=== PATIENT | female | born 1990 | race Two or more races ===

== ENCOUNTER → 2017-03-19 | Outpatient (CLI) | payer OTHER | LOC: BMCIMAGING 12:49 | PROVIDERS: ATTEND Registered Nurse General Practice | DX: N94.6 Dysmenorrhea, unspecified (principal) ==

== ENCOUNTER → 2018-07-11 | Outpatient (CLI) | payer OTHER | LOC: FIMAGING 07:40 | PROVIDERS: ATTEND Obstetrics & Gynecology | DX: Z36.2 Encounter for other antenatal screening follow-up (principal); O36.62X0 Maternal care for excessive fetal growth, second trimester, not applicable or unspecified; O99.512 Diseases of the respiratory system complicating pregnancy, second trimester; J45.990 Exercise induced bronchospasm; Z3A.20 20 weeks gestation of pregnancy; Z68.31 Body mass index [BMI] 31.0-31.9, adult ==

== ENCOUNTER → 2018-08-09 | Outpatient (CLI) | payer OTHER | LOC: FIMAGING 14:43 | PROVIDERS: ATTEND Obstetrics & Gynecology | DX: O36.62X0 Maternal care for excessive fetal growth, second trimester, not applicable or unspecified (principal); Z3A.24 24 weeks gestation of pregnancy ==

== ENCOUNTER → 2018-10-10 | Outpatient (CLI) | payer OTHER | LOC: FIMAGING 13:58 | PROVIDERS: ATTEND Obstetrics & Gynecology | DX: Z34.83 Encounter for supervision of other normal pregnancy, third trimester (principal); Z3A.33 33 weeks gestation of pregnancy ==

== ENCOUNTER 2019-01-21 00:11 | Emergency (ER) | payer OTHER ==
[2019-01-21] MEDS ORDERED: fentaNYL 100 MCG/2 ML INJ ONE (00:31)
[2019-01-21] MEDS ORDERED: fentaNYL 100 MCG/2 ML INJ IVP ONE ×2 (00:32→02:00)
--- NOTE | 2019-01-21 00:50 | EDPHY ---
General - History Smoking Status: Never smoked Time Seen by Provider: 01/21/19 00:31 Narrative: CLINICAL IMPRESSION: Right proximal tibia fracture ASSESSMENT/PLAN: Patient is a 28-year-old female with no significant medical history presents to the emergency department with acute right knee pain and inability to bear weight after sustaining an injury while playing soccer. Patient is very uncomfortable appearing on arrival with obvious swelling inferior lateral right knee, no obvious deformity. X-ray revealed lateral proximal tibial fracture with displacement, also concern for soft tissue and possible ligamentous injury based on mechanism. There was no evidence on physical exam of dislocation, patellar rupture, compartment syndrome, open fracture or neurovascular compromise. Dr. Rock with Orthopedic surgery was consulted, he reviewed the patient's x-rays and recommended CT for further evaluation and surgical planning ; still pending. Patient was given multiple doses of narcotic pain medication. She was placed in a posterior long fiberglass splint as a knee immobilizer would not fit. On repeat examination after splint placement, CMS remained intact however the patient was experiencing significant pain. Discussed admission for pain control and patient opts to wait and attempt to go home. Dispo is pending at this time, entirety of this case was discussed with Dr. Merino who will resume care of this patient at this time. Pending discharged home, she understands the importance of nonweightbearing status and will call 1st thing Wednesday morning to schedule follow-up appointment with Orthopedic surgery. Conservative return precautions were discussed with this patient, she will return for severe or uncontrolled pain, significant swelling, illness or coolness of the extremity, fever, numbness or tingling of the extremity or for any other concerning symptom. DIFFERENTIAL DX: Knee injury while playing soccer including but not limited to fracture, ACL injury, contusion, muscular strain, and meniscus injury. ED PROCEDURES: Procedure: Splint placement. A posterior long leg was applied. After application of the splint I returned and re-examined the patient. The splint was adequately immobilizing the joint and distal to the splint the patient's circulation and sensation was intact. ED COURSE: 0038: Case discussed with Dr. Merino 0049: X-ray reviewed by myself and Dr. Merino, reveals proximal lateral tibial fracture. 0102: On repeat examination the patient is much more comfortable appearing. Secondary assessment reveals no additional injuries. Her lower leg compartments remained soft and she remains neurovascularly intact distally. 0225: On repeat examination the patient is very tearful, very uncomfortable appearing. Posterior splint has been applied, CMS remains intact post splint placement. Compartments have remained soft. Discussed admission for pain control, patient would prefer to go home. Will wait for adequate pain control and re-evaluate. Dr. Merino will resume care of this patient at this time. CHIEF COMPLAINT: Right knee pain HPI: Patient is a 28-year-old female with no significant medical history who presents to the emergency department with acute right knee pain after sustaining an injury while playing soccer. Just prior to arrival patient reports she was jumping up to get a ball, when she landed she felt her knee bend medially and felt a pop at that time. She was able to stand for brief period of time however felt that her knee gave out medially. She has been experiencing increased pain and swelling inferior to the right knee. She is experiencing most pain on the lateral aspect. She denies any numbness or tingling of the extremity. She denies any previous injury or surgery to this knee. She did not hit her head, there was no loss of consciousness. She denies any other injury or complaint. PAST MEDICAL HISTORY: Denies Pertinent Past Surgical History: Denies Family History: Noncontributory Social History: Denies cigarette smoking, illicit drug use or alcohol abuse ROS: A full 10 point review of systems was negative except for those mentioned in HPI. PHYSICAL EXAM: General Appearance: Alert, very uncomfortable appearing however not toxic- appearing. HENT: Normocephalic, atraumatic. External ears are normal. Nares are clear, mucosa is pink. Oropharynx is clear, normal dentition. Eyes: PERRLA, EOMI intact. Conjunctiva pink, no pallor or injection. Neck: Supple, nontender, no lymphadenopathy, no midline pain, FROM. Respiratory: There are no retractions, lungs are clear to auscultation. Cardiac: Regular rate and rhythm, no murmurs or gallops. Gastrointestinal: Abdomen is soft, nontender, bowel sounds normal, no masses/ hernia, no rigidity, guarding or focal peritoneal findings. Skin: Warm, dry, no rashes, no nodules on palpation. Upper Extremities: Bilateral upper extremities unremarkable. Intact distal pulses, Full range of motion intact, no tenderness, no ecchymosis or edema. Lower Extremities: Left lower extremity is unremarkable. Intact distal pulses , No edema, No tenderness, No cyanosis, full range of motion intact. Right lower extremity with obvious edema noted to the general right knee, there is more notable swelling inferior lateral to the right knee along the proximal fibula. There is no obvious deformity. Both her right thigh and right calf compartments are soft. Dorsalis pedis and posterior tibialis is 2+. There is no calf tenderness. Right ankle is nontender with full range of motion. MEDICAL DECISION MAKING: Patient was seen independently. Secondary supervising physician at time of evaluation was Dr. Merino, she also evaluated this patient. Diagnosis: Proximal, lateral tibial fracture. New, requires workup Summary: See Assessment and Plan for summary of ED visit Clinical lab tests: Not applicable. Independent visualization of images, tracing, or specimens: Yes. Decision to obtain medical records or history from someone other than the patient: No Review / Summarize previous medical records: Yes Discussed patient with another provider: Yes, Dr. Merino Patient Progress: Stable, pending. (Essence Rose) PHYSICIAN DOCUMENTATION: The patient was evaluated and managed by the Physician Home Health Care Coordinator. My co- signature indicates that I have reviewed this chart and I agree with the findings and plan of care as documented. I am the secondary supervising physician. This is a 28-year-old female who had an injury while playing soccer and sustained a proximal tibial fracture laterally. As I examined the patient, she does not have any signs or symptoms of compartment syndrome. I consulted with Dr. Rock of Orthopedics. He recommends CT scan and if patient's pain is well managed, can be discharged home. We applied a splint, obtained CT scan and monitored patient in the emergency department for several hours. CT scan revealed a comminuted fracture of the lateral tibial plateau with a 5 mm step off, comminuted fibular head fracture and associated tissue swelling. Patient eventually felt well enough to go home, was able to use crutches. Will be discharged with orthopedic follow-up. (Fide Merino) - Objective Vital Signs: Initial Vital Signs Temperature (C) 37.7 C 01/21/19 00:19 Heart Rate 107 H 01/21/19 00:19 Respiratory Rate 22 H 01/21/19 00:19 Blood Pressure 132/87 H 01/21/19 00:19 O2 Sat (%) 100 01/21/19 00:19 O2 Delivery Mode Room Air Allergies/Adverse Reactions: tramadol Allergy (Verified 01/21/19 00:21) Home Medications: Medication Instructions Recorded Ibuprofen [Motrin (*)] 600 mg PO Q6 PRN #60 tab 03/06/15 Hydrocodone/APAP 5/325 [[place] 1 - 2 tab PO Q6H PRN #20 tab 01/21/19 5/325 (*)] Medications Given: Discontinued Medications Hydrocodone Bitart/Acetaminophen ([place] 5/325) 1 tab PO EDNOW ONE Stop: 01/21/19 00:55 Last Admin: 01/21/19 01:01 Dose: 1 tab Hydrocodone Bitart/Acetaminophen ([place] 5/325mg Prepack#6) 1 btl TAKEHOME EDNOW ONE Stop: 01/21/19 02:56 Last Admin: 01/21/19 03:15 Dose: 1 btl Fentanyl (Sublimaze) 100 mcg IVP ONCE ONE Stop: 01/21/19 00:33 Last Admin: 01/21/19 00:44 Dose: 100 mcg Fentanyl (Sublimaze) 100 mcg IVP EDNOW ONE Stop: 01/21/19 02:01 Last Admin: 01/21/19 02:00 Dose: 100 mcg Departure - Departure Disposition: Home, Routine, Self-Care Clinical Impression: Closed tibia fracture Qualifiers: Encounter type: initial encounter Tibia location: proximal Fracture morphology : unspecified fracture morphology Laterality: right Qualified Code(s): S82.101A - Unspecified fracture of upper end of right tibia, initial encounter for closed fracture Condition: Good Instructions: Hydrocodone/Acetaminophen (By mouth), Leg Fracture (ED) Additional Instructions: DISCHARGE INSTRUCTIONS FROM YOUR DOCTOR Thank you for visiting our emergency department today. Please keep in mind that discharge from the emergency department does not mean that there is nothing wrong - it simply means that we have not identified an emergency condition that requires further evaluation or treatment in the hospital. You should always plan to follow up with primary care for re-evaluation of your condition in the next 2-3 days. Ice on and off to the affected knee. Elevate as much as possible. Wear your splint as applied, do not get it wet. No weight-bearing until follow- up with Orthopedic surgery. Tylenol as directed as needed for less severe pain. Do not exceed 4000 mg in 24 hours. You have been prescribed [place] which is a narcotic. Please do not drive or operate machinery while taking this medication as it may make you drowsy. It may also be habit forming. This medication can also cause constipation, recommend taking 100 mg of Colace twice daily while taking this medication. This medication also contains Tylenol, please do not take other Tylenol containing products with this medication. Call and schedule a follow-up re-evaluation appointment with your primary care physician in the next 3-7 days. As discussed, you may require further evaluation and/or treatment, ie: an MRI, physical therapy, and/or an orthopedic consultation-- all depending on your healing course. Orthopedic injuries you are at increased risk for developing a blood clot in your leg. Be sure to gently stretch your calf on and off throughout the day and seek follow-up care immediately for any calf pain, redness, swellling, ankle swelling, or other concerns. Return for increased or unmanageable pain, new injury, new site of pain, numbness, tingling, weakness of the leg, coolness or discoloration of the leg/ foot/ankle, redness, swelling, fever, difficulty breathing, chest pain, calf pain, ankle swelling, severe headache, back pain, or for any other new, worsening, or worrisome symptoms. People present with illnesses and injuries in different ways, and it is always possible that we have missed something. You may always return for re-evaluation if symptoms worsen or if they are not improving or if you develop new/different symptoms. Again, thank you for choosing our emergency department. We hope that you feel better. Referrals: Navid Rock MD [Medical Doctor] - 2-3 days, call for appt. (Call 1st thing Wednesday to schedule an appointment with Orthopedic surgery) Prescriptions: Hydrocodone/APAP 5/325 [[place] 5/325 (*)] 1 - 2 tab PO Q6H PRN #20 tab PRN Reason: Pain, Severe
[2019-01-21] MEDS ORDERED: HYDROCODONE/APAP 5/325 TAB PO ONE (00:54)
[2019-01-21] MEDS ORDERED: HYDROCOD/APAP 5/325 PREPACK#6 BTL TAKEHOME ONE (02:55)
[2019-01-21 03:17] VITALS: BP 126/76
== END 2019-01-21 03:16 | disposition home or self-care (01) ==
PROC: 2W3LX1Z Immobilization of Right Lower Extremity using Splint (ICD-10-PCS; principal; 2019-01-21)
DX: S82.251A Displaced comminuted fracture of shaft of right tibia, initial encounter for closed fracture (principal); W18.49XA Other slipping, tripping and stumbling without falling, initial encounter; Y93.66 Activity, soccer; Y92.322 Soccer field as the place of occurrence of the external cause
CPT/HCPCS: 96374; J3010

== ENCOUNTER 2019-01-27 05:54 | Day surgery (SDC) | payer OTHER ==
[2019-01-27] MEDS ORDERED: ACETAMINOPHEN 500 MG TAB PO ONE (06:03)
[2019-01-27] MEDS ORDERED: LR 1,000 ML IV SCH (06:03)
[2019-01-27] MEDS ORDERED: ceFAZolin 2 GM/DEXTROSE 100 ML IV ONE (06:03)
--- NOTE | 2019-01-27 06:10 | PDHPUP ---
History & Physical Update H&P update statement: This history and physical update is based on an assessment of the patient which was completed after admission or registration (within 24 hours), but prior to the surgery/procedure. H&P update: no change in patient's condition since H&P completed
--- NOTE | 2019-01-27 06:20 | PDGENHP ---
History & Physical Chief Complaint: right tibial plateau fx History of Present Illness: fx tibial plateau playing soccer Pertinent Past, Social, Family History: see chart Relevant Physical Exam: long leg splint. intact digital flexion and extension. sensation grossly intact Cardiorespiratory Assessment: good
[2019-01-27] MEDS ORDERED: BUPIVACAINE/EPI 0.5% 30 ML SDV ONE (06:37)
[2019-01-27] MEDS ORDERED: BACITRACIN 50,000 UNITS/10 ML SYR IRR ONE (06:37)
[2019-01-27] MEDS ORDERED: POLYMYXIN B SULFATE 500,000 UNIT/10 ML SYR IRR ONE (06:37)
[2019-01-27] MEDS ORDERED: PROPOFOL/EMULSION 500 MG/50 ML BOTTLE IV ONE ×2 (06:45→08:46)
[2019-01-27] MEDS ORDERED: fentaNYL 250 MCG/5 ML INJ ONE (06:48)
[2019-01-27] MEDS ORDERED: MIDAZOLAM 2 MG/2 ML VIAL IVP ONE (06:58)
--- NOTE | 2019-01-27 07:00 | PDANEPAE ---
ANE History of Present Illness 28 year old female for ORIF of right knee. Otherwise healthy. ANE Past Medical History - Cardiovascular History Hx Hypertension: No Hx Arrhythmias: No Hx Chest Pain: No Hx Coronary Artery / Peripheral Vascular Disease: No Hx CHF / Valvular Disease: No Hx Palpitations: No - Pulmonary History Hx COPD: No Hx Asthma/Reactive Airway Disease: No Hx Recent Upper Respiratory Infection: No Hx Oxygen in Use at Home: No Hx Sleep Apnea: No Sleep Apnea Screening Result - Last Documented: Negative - Neurologic History Hx Cerebrovascular Accident: No Hx Seizures: No Hx Dementia: No - Endocrine History Hx Diabetes: No - Renal History Hx Renal Disorders: No - Liver History Hx Hepatic Disorders: No - Neurological & Psychiatric Hx Hx Neurological and Psychiatric Disorders: No - Cancer History Hx Cancer: No - Congenital Disorder History Hx Congenital Disorders: No - GI History Hx Gastrointestinal Disorders: No - Other Health History Other Health History: INJURED PLAYING SOCCER 01/21/19. 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 - Chronic Pain History Chronic Pain: No - Surgical History Prior Surgeries: ANE Review of Systems Review of systems is: negative Review of Systems: - Exercise capacity METS (RN): 6 METS ANE Patient History - Allergies Allergies/Adverse Reactions: tramadol Allergy (Verified 01/26/19 12:15) HANGOVER FEELING - Home Medications Home Medications: Colace 100 MG (*) DAILY 01/26/19 [Last Taken Unknown] Oxycodone-Acetaminophen 5-325 PRN 01/26/19 [Last Taken Unknown] - NPO status NPO Since - Liquids (Date): 01/26/19 NPO Since - Liquids (Time): 17:00 NPO Since - Solids (Date): 01/26/19 NPO Since - Solids (Time): 17:00 - Smoking Hx Smoking Status: Never smoked - Family Anes Hx Family Hx Anesthesia Complications: MOM HAS LUNG COLLAPSE ANE Labs/Vital Signs - Vital Signs Blood Pressure: 117/69 Heart Rate: 81 Respiratory Rate: 11 O2 Sat (%): 94 Height: 170.18 cm Weight: 90.718 kg ANE Physical Exam - Airway Neck exam: FROM Mallampati Score: Class 2 Mouth exam: normal dental/mouth exam - Pulmonary Pulmonary: no respiratory distress - Cardiovascular Cardiovascular: regular rate and rhythym - ASA Status ASA Status: I ANE Anesthesia Plan Anesthesia Plan: spinal
[2019-01-27] MEDS ORDERED: BUPIVACAINE 0.5% 30 ML SDV ONE (07:09)
[2019-01-27] MEDS ORDERED: LABETALOL HCL 5 MG/ML 20 ML MDV IVP PRN (07:30)
[2019-01-27] MEDS ORDERED: NALOXONE HCL 0.4 MG/ML INJ IVP PRN (07:30)
[2019-01-27] MEDS ORDERED: ONDANSETRON 4 MG/2 ML VIAL IVP PRN (07:30)
[2019-01-27] MEDS ORDERED: MEPERIDINE 25 MG/0.5 ML AMP IVP PRN (07:30)
[2019-01-27] MEDS ORDERED: HYDROCODONE/APAP 5/325 TAB PO PRN (07:30)
[2019-01-27] MEDS ORDERED: LR 500 ML IV PRN (07:30)
[2019-01-27] MEDS ORDERED: ALBUTEROL 3 ML DEYVIAL IH PRN (07:30)
[2019-01-27] MEDS ORDERED: DEXAMETHASONE 4 MG/ML VIAL IVP PRN (07:30)
[2019-01-27] MEDS ORDERED: DEXAMETHASONE 4 MG/ML VIAL ONE (08:34)
[2019-01-27] MEDS ORDERED: ONDANSETRON 4 MG/2 ML VIAL ONE ×2 (08:34→09:59)
[2019-01-27] MEDS ORDERED: oxyCODONE IR 5 MG TAB PO PRN (09:13)
--- NOTE | 2019-01-27 09:18 | POSTOPPROG ---
Post Op Note Date of Operation: 01/27/19 Surgeon: Franklyn Hodge Field Support Engineer: j carlos Anesthesiologist: julia Anesthesia: Spinal Pre-op Diagnosis: right tibial plateau fx Post-op Diagnosis: alexa Indication: alexa Procedure: orif right tibial plateau fx Inf/Abcess present in the surg proc area at time of surgery?: No Depth: Deep Incisional (Fascial) EBL: 100-500
--- NOTE | 2019-01-27 09:23 | POSTANESTH ---
Post Anesthetic Evaluation Cardiovascular Status: Normal, Stable Respiratory Status: Normal, Stable Level of Consciousness/Mental Status: Moderately Sleepy Pain Control: Adequate, Prn Tx Ordered Nausea/Vomiting Control: Adequate, Prn Tx Ordered Complications Possibly Related to Anesthesia: None Noted
[2019-01-27] MEDS ORDERED: HYDROmorphONE/DILAUDID 1 MG/ML INJ ONE (09:58)
[2019-01-27] MEDS: HYDROmorphONE/DILAUDID 1 MG/ML INJ IVP PRN ×3 (10:03→11:35)
[2019-01-27] MEDS ORDERED: oxyCODONE IR 5 MG TAB ONE ×2 (12:02→12:06)
[2019-01-27] MEDS ORDERED: fentaNYL 100 MCG/2 ML INJ ONE (12:06)
[2019-01-27] MEDS: fentaNYL 100 MCG/2 ML INJ IVP PRN ×2 (12:09→12:52)
[2019-01-27 14:07] VITALS: BP 123/75
[2019-01-27] MEDS ORDERED: methylPREDNISolone SOD SUCC 125 MG/2 ML VIAL ONE (14:17)
[2019-01-27] MEDS ORDERED: RANITIDINE 50 MG/2 ML VIAL ONE (14:17)
== END 2019-01-27 14:45 | disposition home or self-care (01) ==
LOC: FSGY 05:54
PROVIDERS: ATTEND Orthopaedic Surgery
PROC: 0QSG04Z Reposition Right Tibia with Internal Fixation Device, Open Approach (ICD-10-PCS; principal; 2019-01-27 07:15)
DX: S82.141A Displaced bicondylar fracture of right tibia, initial encounter for closed fracture (principal); X50.9XXA Other and unspecified overexertion or strenuous movements or postures, initial encounter; Y92.322 Soccer field as the place of occurrence of the external cause; Y93.66 Activity, soccer; Y99.9 Unspecified external cause status
CPT/HCPCS: C1713; C1762; J0690; J1100; J1170; J1200; J2250; J2405; J2704; J2780; J2930; J3010; L1832

== ENCOUNTER → 2019-03-09 | Outpatient (CLI) | payer OTHER | LOC: FLAB 17:33 | PROVIDERS: ATTEND Physician Assistant | DX: S82.201D Unspecified fracture of shaft of right tibia, subsequent encounter for closed fracture with routine healing (principal) ==